=== PATIENT | male | born 1955 | race Caucasian/White ===

== ENCOUNTER → 2017-11-10 | Outpatient (CLI) | payer OTHER ==
--- NOTE | 2017-11-10 15:51 | RAD ---
EXAM DESCRIPTION: Abdomen Flat Upright CLINICAL HISTORY: 62 years Male, [place] COMPARISON: None. TECHNIQUE: Upright and supine x-ray views of the abdomen FINDINGS: Supine view shows no mass or visceromegaly. No bowel distention. Pelvic calcifications are most likely vascular. Calcification on the left, below the level of the left SI joint, measures 5 mm. If a left ureteral stone is suspected, CT of the abdomen could be performed. Calcifications on the right appear vascular and it is possible that lesser vascular calcification is also present on the left as an explanation for this finding. Bones are unremarkable except for degenerative sclerotic changes at L4-5 disc level. Upright view shows no free air under the diaphragm and no abnormal air-fluid levels. Lung bases are clear. Cardiac pacer is in place. IMPRESSION: Indeterminate pelvic calcifications. Degenerative sclerosis at L4-5 disc level. Negative for evidence of small bowel obstruction. Electronically signed by: Rancho Lopez MD 11/10/2017 3:51 PM CDT
== END ==
LOC: RAD 11:03
PROVIDERS: ATTEND Surgery
DX: R19.7 Diarrhea, unspecified (principal)

== ENCOUNTER → 2018-05-17 | Outpatient (CLI) | payer OTHER | LOC: GMAE 10:53 | PROVIDERS: ATTEND Family Medicine | DX: Z00.00 Encounter for general adult medical examination without abnormal findings (principal); R79.89 Other specified abnormal findings of blood chemistry ==

== ENCOUNTER → 2020-05-20 | Outpatient (CLI) | payer OTHER | LOC: GMAM 09:48 | PROVIDERS: ATTEND Family Medicine | DX: R53.83 Other fatigue (principal); E78.5 Hyperlipidemia, unspecified; E83.51 Hypocalcemia; I10 Essential (primary) hypertension ==